=== PATIENT | female | born 1935 | race Caucasian/White ===

== ENCOUNTER 2016-07-15 17:53 | Inpatient (IN) | payer OTHER, MEDICARE ==
[~2016-07-15] VITALS: Ht 162.6 cm; Wt 67.2 kg
[~2016-07-15 17:53] MED LIST: ASPIR 8181 M1 PO; CALCIUM 500 +1 EAC5 PO; CENTRUM SILVER1 EAC4 PO; CHOLESTYRAMINE P4 GM PO; CYANOCOBALAM1000 MCG PO; CYTOXAN25 MG PO; LIALDA1.2 GM PO; METOPROLOL PO; METRONIDAZOLE45 G1 TP; MULTAQ400 MG PO; OSCAL, OYSTER500 MG PO; RESTASIS 01 DROP/0.4 BOTH EYES; ZOFRAN ODT4 MG PO
[2016-07-15 18:23] LABS: HEMATOCRIT 39.2 % (36.0-46.0); MCH 33.6 PG (29.0-34.0); MCHC 33.7 G/DL (30.0-36.0); MCV 99.7 FL (83-99); MEAN PLAT.VOLUME 8.6 uM^3 (9.5-12.4); PLATELET COUNT 285 K/uL (156-360); RBC DIS.WIDTH-CV 13.8 % (11.8-14.6); RED BLOOD COUNT 3.93 M/uL (3.80-5.20); WHITE BLOOD COUNT 16.5 K/uL (4.1-10.2)
[2016-07-15 18:31] LABS: CHLORIDE 104 mEq/L (99-109); POTASSIUM 4.1 mEq/L (3.7-5.4); SODIUM 138 mEq/L (136-147)
[2016-07-15 18:33] LABS: GLUCOSE 116 mg/dL (70-99)
[2016-07-15 18:35] LABS: ANION GAP 12 MEQ/L (2-14)
[2016-07-15 18:37] LABS: GFR ESTIMATE (CALCULATED) > 59 mL/min/; PROTHROMBIN TIME 10.3 (9.2-11.2)
[2016-07-15 18:38] LABS: UREA NITROGEN (BUN) 16 mg/dL (9-23)
[2016-07-15 18:43] LABS: TROP-I INTERPRETATION NEGATIVE; TROPONIN-I < 0.01 ng/mL (0.0-0.30)
[2016-07-15 18:52] LABS: PTT 27.1 (25-32)
[2016-07-15 20:25] LABS: ADD MIUA? YES; BILIRUBIN NEGATIVE; BLOOD NEGATIVE; COLOR YELLOW ((YELLOW)); GLUCOSE (STRIP) NEGATIVE; KETONES NEGATIVE; LEUKOCYTES SMALL; NITRITE POSITIVE; PH, URINE 6.5 (5-8); PROTEIN (STRIP) NEGATIVE; SPECIFIC GRAVITY 1.013 (1.000-1.030); UROBILINOGEN 0.2 MG/DL (0.2-1.0)
[2016-07-15 21:16] LABS: RED BLOOD CELLS 0-5 /HPF (0-5)
[2016-07-15 21:17] LABS: BACTERIA 4+; CASTS NONE SEEN /LPF; CRYSTALS NONE SEEN; EPITHELIAL CELLS RARE; MUCUS NONE SEEN
[2016-07-15] MEDS ORDERED: ZYRTEC10 M3 PO (22:44)
[2016-07-15] MEDS ORDERED: SYSTANE ULTRA 015 ML BOTH EYES (22:45)
[2016-07-15] MEDS ORDERED: BIOTENE MOISTUR45 ML PO (22:46)
[2016-07-15] MEDS ORDERED: ALEVE220 MG PO (22:46)
[2016-07-15] MEDS ORDERED: B-121000 MC1 SL (22:47)
[2016-07-15] MEDS ORDERED: VITAMIN B-121000 MC1 SL (22:48)
[2016-07-15] MEDS ORDERED: TOBRADEX EYE O3.5 GM BOTH EYES (22:48)
[2016-07-15] MEDS ORDERED: CYANOCOBAL1000 MCG/2 IM (22:48)
[2016-07-15] MEDS ORDERED: DENTIVA SOFT L1 EACH MM (22:50)
[2016-07-16 08:44] VITALS: BP 102/63
[2016-07-16 10:52] LABS: ANION GAP 5 MEQ/L (2-14); CHLORIDE 107 MEQ/L (99-109); POTASSIUM 3.9 MEQ/L (3.7-5.4); SAMPLE HEMOLYSIS CHECK 0; SAMPLE ICTERIC CHECK 0; SAMPLE LIPEMIA CHECK 0; SODIUM 138 MEQ/L (136-147)
[2016-07-16 10:56] LABS: HEMATOCRIT 33.5 % (36.0-46.0); MCH 33.3 PG (29.0-34.0); MCHC 32.5 G/DL (30.0-36.0); MCV 102.4 FL (83-99); MEAN PLAT.VOLUME 9.4 uM^3 (9.5-12.4); PLATELET COUNT 237 K/uL (156-360); RBC DIS.WIDTH-CV 14.3 % (11.8-14.6); RBC DIS.WIDTH-SD 53.5 % (39-53); RED BLOOD COUNT 3.27 M/uL (3.80-5.20)
[2016-07-16 10:58] LABS: GFR ESTIMATE (CALCULATED) > 59 mL/min/; GLUCOSE 90 mg/dL (70-99); UREA NITROGEN (BUN) 10 mg/dL (9-23); WHITE BLOOD COUNT 6.5 K/uL (4.1-10.2)
[2016-07-16 12:00] VITALS: BP 110/70
[2016-07-16 20:32] VITALS: BP 131/66
[2016-07-16] MEDS ORDERED: AMBIEN5 MG PO (21:05)
[2016-07-16 23:15] VITALS: BP 94/55
[2016-07-17 03:03] VITALS: BP 100/51
[2016-07-17 06:36] LABS: HEMATOCRIT 31.3 % (36.0-46.0); MCH 33.2 PG (29.0-34.0); MCHC 32.6 G/DL (30.0-36.0); MEAN PLAT.VOLUME 8.8 uM^3 (9.5-12.4); PLATELET COUNT 208 K/uL (156-360); RBC DIS.WIDTH-CV 14.2 % (11.8-14.6); RBC DIS.WIDTH-SD 52.8 % (39-53); RED BLOOD COUNT 3.07 M/uL (3.80-5.20); WHITE BLOOD COUNT 5.2 K/uL (4.1-10.2)
[2016-07-17 06:54] LABS: ANION GAP 5 MEQ/L (2-14); CHLORIDE 109 MEQ/L (99-109); GFR ESTIMATE (CALCULATED) > 59 mL/min/; GLUCOSE 82 mg/dL (70-99); POTASSIUM 4.3 MEQ/L (3.7-5.4); SAMPLE HEMOLYSIS CHECK 0; SAMPLE ICTERIC CHECK 0; SAMPLE LIPEMIA CHECK 0; SODIUM 140 MEQ/L (136-147); UREA NITROGEN (BUN) 8 mg/dL (9-23)
[2016-07-17 07:24] VITALS: BP 111/55
[2016-07-17 11:00] VITALS: BP 95/33
[2016-07-17 16:21] VITALS: BP 104/56
[2016-07-17 20:05] VITALS: BP 122/63
[2016-07-17 23:55] VITALS: BP 132/67
[2016-07-18 04:00] VITALS: BP 101/56
[2016-07-18 07:20] VITALS: BP 110/64
[2016-07-18 09:10] LABS: HEMATOCRIT 35.9 % (36.0-46.0); MCHC 33.1 G/DL (30.0-36.0); MCV 102.6 FL (83-99); MEAN PLAT.VOLUME 9.2 uM^3 (9.5-12.4); PLATELET COUNT 242 K/uL (156-360); RBC DIS.WIDTH-SD 52.2 % (39-53); WHITE BLOOD COUNT 6.2 K/uL (4.1-10.2)
[2016-07-18 09:37] LABS: ANION GAP 7 MEQ/L (2-14); CHLORIDE 107 MEQ/L (99-109); GFR ESTIMATE (CALCULATED) > 59 mL/min/; GLUCOSE 81 mg/dL (70-99); POTASSIUM 4.2 MEQ/L (3.7-5.4); SAMPLE HEMOLYSIS CHECK 0; SAMPLE ICTERIC CHECK 0; SAMPLE LIPEMIA CHECK 0; SODIUM 141 MEQ/L (136-147); UREA NITROGEN (BUN) 6 mg/dL (9-23)
[2016-07-18 10:35] LABS: C DIFF TOXIN POSITIVE (NEGATIVE)
[2016-07-18 10:37] LABS: PROBE CHECK PASS
[2016-07-18 16:47] VITALS: BP 130/57
[2016-07-18 20:00] VITALS: BP 121/56
[2016-07-18 23:55] VITALS: BP 133/63
[2016-07-19 04:00] VITALS: BP 102/56
[2016-07-19 05:21] LABS: HEMATOCRIT 32.4 % (36.0-46.0); MEAN PLAT.VOLUME 9.1 uM^3 (9.5-12.4); PLATELET COUNT 233 K/uL (156-360); RBC DIS.WIDTH-CV 13.7 % (11.8-14.6); RBC DIS.WIDTH-SD 49.5 % (39-53); RED BLOOD COUNT 3.24 M/uL (3.80-5.20); WHITE BLOOD COUNT 6.5 K/uL (4.1-10.2)
[2016-07-19 05:46] LABS: ANION GAP 8 MEQ/L (2-14); CHLORIDE 106 MEQ/L (99-109); GFR ESTIMATE (CALCULATED) > 59 mL/min/; GLUCOSE 90 mg/dL (70-99); POTASSIUM 3.8 MEQ/L (3.7-5.4); SAMPLE HEMOLYSIS CHECK 0; SAMPLE ICTERIC CHECK 0; SAMPLE LIPEMIA CHECK 0; SODIUM 139 MEQ/L (136-147); UREA NITROGEN (BUN) 6 mg/dL (9-23)
[2016-07-19 07:28] VITALS: BP 111/55
[2016-07-19] MEDS ORDERED: ELIQUIS5 MG PO (13:18)
[2016-07-19] MEDS ORDERED: LOPRESSOR50 MG PO (13:18)
[2016-07-19] MEDS ORDERED: VANCOMYCIN HCL125 MG PO (13:22)
== END 2016-07-19 14:18 | disposition home or self-care (01) | DRG 872 ==
LOC: EME 17:53 → 4EAST 23:28 → EDOF 23:28 → 4EAST 07-16 07:58
PROVIDERS: Family Medicine; Nurse Practitioner Family; Physician Assistant
DX: A41.9 Sepsis, unspecified organism (principal); N39.0 Urinary tract infection, site not specified; Z95.0 Presence of cardiac pacemaker; I48.0 Paroxysmal atrial fibrillation; I10 Essential (primary) hypertension; I25.10 Atherosclerotic heart disease of native coronary artery without angina pectoris; I44.7 Left bundle-branch block, unspecified; K21.9 Gastro-esophageal reflux disease without esophagitis; Z96.651 Presence of right artificial knee joint; A04.7 Enterocolitis due to Clostridium difficile; B96.1 Klebsiella pneumoniae [K. pneumoniae] as the cause of diseases classified elsewhere
CPT/HCPCS: 71020; 71275; 80048; 81003; 84443; 84484; 85027; 85379; 85610; 85730; 87040; 87070; 87075; 87077; 87086; 87186; 87205; 87493; 93005; 99281; 99285; J0696; J1200; J1644; J2405; J7030; J7050; J7120; S0073

== ENCOUNTER → 2016-11-26 | Outpatient (CLI) | payer OTHER, MEDICARE ==
[~2016-11-26] MED LIST changes: +ALEVE220 MG PO; +AMBIEN5 MG PO; +B-121000 MC1 SL; +BIOTENE MOISTUR45 ML PO; +CYANOCOBAL1000 MCG/2 IM; +DENTIVA SOFT L1 EACH MM; +ELIQUIS5 MG PO; +LOPRESSOR50 MG PO; +SYSTANE ULTRA 015 ML BOTH EYES; +TOBRADEX EYE O3.5 GM BOTH EYES; +VANCOMYCIN HCL125 MG PO; +VITAMIN B-121000 MC1 SL; +ZYRTEC10 M3 PO
== END | disposition home or self-care (01) ==
LOC: AMB 08:22
PROC: 3E0G7GC Introduction of Other Therapeutic Substance into Upper GI, Via Natural or Artificial Opening (ICD-10-PCS; principal; 2016-11-26)
DX: A04.7 Enterocolitis due to Clostridium difficile (principal); Z88.1 Allergy status to other antibiotic agents; Z88.8 Allergy status to other drugs, medicaments and biological substances
CPT/HCPCS: 71010; G0455